=== PATIENT | female | born 1980 ===

== ENCOUNTER 2018-03-22 07:37 | Emergency (ER) | payer BC ==
--- NOTE | 2018-03-22 08:07 | UC ---
Complaint Female HPI - HPI Summary HPI Summary: 38 yo female presents with burning, frequency, and urgency of urination since yesterday. She tells me that she has had UTIs in the past and this feels the same. This morning noticed some blood in her urine. Denies fever, chills, flank pain, vaginal discharge. No hx of stone - History Of Current Complaint Chief Complaint: UCGU Stated Complaint: URINARY ISSUE Time Seen by Provider: 03/22/18 08:06 Hx Obtained From: Patient Hx Last Menstrual Period: 03/12/18 Onset/Duration: Sudden Onset Timing: Constant Severity Initially: Mild Severity Currently: Moderate Pain Intensity: 4 Pain Scale Used: 0-10 Numeric - Allergies/Home Medications Allergies/Adverse Reactions: Allergies Allergy/AdvReac Type Severity Reaction Status Date / Time Sulfa (Sulfonamide Allergy Rash Verified 03/22/18 07:50 Antibiotics) Home Medications: Home Medications Acetaminophen [Acetaminophen Extra Strength] 2 tab PO ONCE PRN 03/22/18 [ History Confirmed 03/22/18] Ibuprofen TAB* [Advil TAB*] 600 mg PO ONCE 03/22/18 [History Confirmed 03/22/18] PMH/Surg Hx/FS Hx/Imm Hx - Additional Past Medical History Additional PMH: None Previously Healthy: Yes - Surgical History Surgical History: Yes Surgery Procedure, Year, and Place: Tonsilectomy; Removal of bilateral Fallopian tubes - Family History Known Family History: Positive: Unknown - Social History Occupation: Employed Full-time Lives: With Family Alcohol Use: Occasionally Substance Use Type: None Smoking Status (MU): Never Smoked Tobacco Review of Systems Constitutional: Negative Skin: Negative Respiratory: Negative Cardiovascular: Negative Gastrointestinal: Negative Genitourinary: Hematuria, Frequency, Urgency Neurovascular: Negative Neurological: Negative Psychological: Negative All Other Systems Reviewed And Are Negative: Yes Physical Exam - Summary Physical Exam Summary: GENERAL: NAD. WDWN. No pain distress. SKIN: No rashes, sores, lesions, or open wounds. NECK: Supple. Nontender. No lymphadenopathy. CHEST: CTAB. No r/r/w. No accessory muscle use. Breathing comfortably and in no distress. CV: RRR. Without m/r/g. Pulses intact. Brisk cap refill. ABDOMEN: Soft. NTTP. No distention or guarding. No organomegaly. No CVA tenderness. Bowel sounds present NEURO: Alert. CN II-XII grossly intact. PSYCH: Age appropriate behavior. Triage Information Reviewed: Yes Vital Signs: Initial Vital Signs Temp 97.4 F 03/22/18 07:51 Pulse 60 03/22/18 07:51 Resp 14 03/22/18 07:51 BP 100/68 03/22/18 07:51 Pulse Ox 100 03/22/18 07:51 Complaint Female Dx - Course Course Of Treatment: UA with 3+ blood and 3+ leuks. Will treat with macrobid and send for culture. - Differential Dx/Diagnosis Provider Diagnoses: UTI Discharge - Sign-Out/Discharge Documenting (check all that apply): Discharge/Admit/Transfer - Discharge Plan Condition: Stable Disposition: HOME Prescriptions: Fluconazole [Diflucan 150 MG (NF)] 150 mg PO ONCE #1 tab Nitrofurantoin Monohyd/M-Cryst [Macrobid 100 mg Capsule] 100 mg PO BID #10 cap Phenazopyridine 200 mg (NF) [Pyridium 200 MG tab *] 200 mg PO TID #6 tab Patient Education Materials: Urinary Tract Infection in Women (ED) Referrals: Amanda Spears MD [Primary Care Provider] - Additional Instructions: If you develop a fever, shortness of breath, chest pain, new or worsening symptoms - please call your PCP or go to the ED. - Billing Disposition and Condition Condition: STABLE Disposition: HOME
== END 2018-03-22 08:23 | disposition home or self-care (01) ==
LOC: UCEAST 07:37
DX: N39.0 Urinary tract infection, site not specified (principal); B96.20 Unspecified Escherichia coli [E. coli] as the cause of diseases classified elsewhere; Z88.2 Allergy status to sulfonamides
CPT/HCPCS: 81003; 87077; 87086; 87186; 99212; G0463